=== PATIENT | male | born 1970 | race Caucasian/White ===

== ENCOUNTER 2016-07-21 16:28 | Emergency (ER) | payer MEDICAID ==
[~2016-07-21] VITALS: Ht 165.1 cm; Wt 66.2 kg
[~2016-07-21 16:28] MED LIST: CIPROFLOXACIN500 M1 PO; FLO4 PO; MILK OF MAGNESIA; TRAMADOL50 MG PO
[2016-07-21 18:22] VITALS: BP 119/79
== END 2016-07-21 18:22 | disposition home or self-care (01) ==
LOC: ED 16:28
DX: H00.012 Hordeolum externum right lower eyelid (principal)

== ENCOUNTER 2016-09-28 06:14 | Emergency (ER) | payer MEDICAID ==
[2016-09-28 06:54] VITALS: BP 119/89
== END 2016-09-28 06:54 | disposition home or self-care (01) ==
LOC: ED 06:14
DX: H01.001 Unspecified blepharitis right upper eyelid (principal)

== ENCOUNTER 2017-01-23 12:42 | Emergency (ER) | payer MEDICAID ==
[~2017-01-23] VITALS: Ht 170.2 cm; Wt 66.8 kg
[2017-01-23 13:42] VITALS: BP 147/88
== END 2017-01-23 13:42 | disposition home or self-care (01) ==
LOC: ED 12:42
DX: L30.8 Other specified dermatitis (principal); L30.4 Erythema intertrigo